=== PATIENT | female | born 1945 | race Caucasian/White ===

== ENCOUNTER 2018-10-11 14:08 | Emergency (ER) | payer MEDICARE, OTHER ==
--- NOTE | 2018-10-11 14:27 | UC ---
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 She felt a snap and pain in her right shoulder today. No other injury. - History of Current Complaint Stated Complaint: WC-RT SHOULDER INJURY Time Seen by Provider: 10/11/18 14:24 Hx Obtained From: Patient ?: No Onset/Duration: Sudden Onset Timing: Constant Severity Initially: Mild Severity Currently: Mild Character: Dull, Aching Aggravating Factor(s): Movement Alleviating Factor(s): Nothing Associated Signs And Symptoms: Positive: Negative Related History: Occupational Injury - Allergies/Home Medications Allergies/Adverse Reactions: Allergies Allergy/AdvReac Type Severity Reaction Status Date / Time morphine Allergy Itching Uncoded 10/11/18 14:32 Home Medications: Home Medications NK [No Home Medications Reported] 10/11/18 [History Confirmed 10/11/18] PMH/Surg Hx/FS Hx/Imm Hx Previously Healthy: Yes - Surgical History Surgical History: Yes Surgery Procedure, Year, and Place: GALLBLADDER. APPENDIX - Family History Known Family History: Positive: Non-Contributory - Social History Lives: With Family Review of Systems All Other Systems Reviewed And Are Negative: Yes Motor: Positive: Decreased ROM - No decreased range of motion but the patient does have slower range of motion because of pain in the right shoulder. Musculoskeletal: Positive: Other: - Pain right shoulder as a result of lifting laundry out of the washer some dryers at her work site. Is Patient Immunocompromised?: No Physical Exam Triage Information Reviewed: Yes Appearance: Well-Appearing, No Pain Distress, Well-Nourished Vital Signs Reviewed: Yes Respiratory: Positive: Lungs clear, Normal breath sounds, No respiratory distress, No accessory muscle use Cardiovascular: Positive: RRR, No Murmur, Pulses Normal, Brisk Capillary Refill Musculoskeletal: Positive: Strength Intact, ROM Intact, Other: - Good peripheral pulses neuro sensation and capillary refill, no deformity is noted. Good range of motion however slow because of pain. Neurological: Positive: Alert, Muscle Tone Normal Psychological Exam: Normal Skin Exam: Normal Shoulder Course/Dx - Course Course Of Treatment: Right shoulder x-ray:REPORT AND IMPRESSION: #. Bone density appears decreased throughout. Negative for fracture. #. Normal acromioclavicular and glenohumeral joint alignment. Preserved glenohumeral joint space. #. Small inferior acromial bone spur. #. Sclerosis and cystic change at the greater tuberosity of the humerus noted typically seen in setting of chronic rotator cuff degeneration. #. Negative for calcific tendinopathy. #. Unremarkable soft tissue contours. The patient would prefer to follow-up with a local orthopedist if any problems therefore I gave her the name and number of Dr. Oreilly - Differential Dx/Diagnosis Provider Diagnosis: Right shoulder pain Discharge - Sign-Out/Discharge Documenting (check all that apply): Patient Departure All imaging exams completed and their final reports reviewed: Yes - Discharge Plan Condition: Good Disposition: HOME Patient Education Materials: Shoulder Pain (ED) Referrals: Adolfo Oreilly MD [Medical Doctor] - Faye Evans MD [Primary Care Provider] - Additional Instructions: Apply ice to the sore area intermittently over the next couple of days, lifting as pain permits. Follow-up with Dr. Oreilly if no improvement in 4-5 days. May take ibuprofen with food as directed for pain. - Billing Disposition and Condition Condition: GOOD Disposition: Home - Attestation Statements Provider Attestation: I was available for consult. This patient was seen by the CAMILA. The patient was not presented to, seen by, or examined by me. -Babs
[2018-10-11 14:32] VITALS: BP 110/69
== END 2018-10-11 15:10 | disposition home or self-care (01) ==
LOC: UCCORT 14:08
DX: M25.511 Pain in right shoulder (principal); Z88.5 Allergy status to narcotic agent; M75.91 Shoulder lesion, unspecified, right shoulder
CPT/HCPCS: 99211; G0463